=== PATIENT | male | born 1985 | race Two or more races ===

== ENCOUNTER 2019-08-18 21:59 | Emergency (ER) | payer BC ==
[~2019-08-18] VITALS: Ht 177.8 cm; Wt 97.6 kg
--- NOTE | 2019-08-18 22:26 | NUR ---
THIS IS A 34 YO M W/ C/O LEFT HAND NUMBNESS AND WEAKNESS SINCE THIS MORINING. 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 FACE SYMETRICAL. PT CONVERSING W/O DIFFICULTY. OT HYPERTENSIVE, AND TACHYCARDIC, OTHER VS WDL. PT RESTING ON [email or web address] W/ CALL LIGHT IN REACH. DENIES FURTHER NEEDS AT THIS TIME.
[2019-08-18] MEDS ORDERED: KETOROLAC 30 MG/1 ML ONE (22:30)
[2019-08-18] MEDS ORDERED: KETOROLAC 30 MG/1 ML IM ONE (22:30)
[2019-08-18 22:35] VITALS: BP 131/87
--- NOTE | 2019-08-18 22:37 | NUR ---
PT MEDICATED PER EMAR.
--- NOTE | 2019-08-18 22:39 | NUR ---
Patient given discharge instructions and they have confirmed that they understand the instructions. Patient ambulatory with steady gait.
== END 2019-08-18 22:40 | disposition home or self-care (01) ==
LOC: EDBD 21:59 → ED 22:09
DX: M25.512 Pain in left shoulder (principal); R20.2 Paresthesia of skin; R00.0 Tachycardia, unspecified
CPT/HCPCS: 93005; 96372; 99283; J1885